=== PATIENT | male | born 1990 | race Caucasian/White ===

== ENCOUNTER 2024-08-11 22:15 | Emergency (ER) | payer MEDICAID ==
[~2024-08-11] VITALS: Ht 170.2 cm; Wt 85.3 kg
[2024-08-11 23:09] VITALS: O2SAT 100
[2024-08-12 00:28] LABS: BASOPHILS % 0.9 % (0.0-2.0); EOSINOPHILS % 2.3 % (0.0-5.0); HEMATOCRIT. 43.2 % (42.0-52.0); LYMPHOCYTES % 42.2 % (20.0-50.0); MEAN CORPUSCULAR HGB CONC 34.7 g/dL (31.0-37.0); MEAN CORPUSCULAR VOLUME 86.6 fL (80.0-94.0); MEAN PLATELET VOLUME 9.6 fl (7.4-10.4); MONOCYTES % 7.1 % (2.0-8.0); NEUTROPHILS % 47.5 % (40.0-76.0); PLATELET 253 x1000/uL (130-400); RED BLOOD CELL COUNT 4.99 mill/uL (4.7-6.1); RED CELL DISTRIBUTION WIDTH 13.4 % (11.6-14.6); WHITE BLOOD COUNT 8.1 x1000/uL (4.5-11.0)
[2024-08-12 00:39] LABS: CHLORIDE 102 mEq/L (98-107); SODIUM 137 mEq/L (136-145)
[2024-08-12 00:40] LABS: CARBON DIOXIDE 30 mEq/L (21-32)
[2024-08-12 00:41] LABS: CALCIUM 10.3 mg/dL (8.7-10.4)
[2024-08-12 00:46] LABS: GLUCOSE 99 mg/dL (70-105); UREA NITROGEN BLOOD 14 mg/dL (9-23)
[2024-08-12] MEDS: KETOROLAC 30MG/ML VIAL IM ONE (04:30)
[2024-08-12] MEDS: MAGNESIUM/ALUMINUM HYDROXIDE/SIMETHICONE 30ML UDC PO ONE (04:30)
[2024-08-12 05:42] LABS: CLARITY URINE CLEAR (CLEAR); COLOR URINE DARK YELLOW (YELLOW); GLUCOSE URINE NEGATIVE (NEGATIVE); KETONES URINE 2+ (NEGATIVE); LEUKOCYTE ESTERASE URINE NEGATIVE (NEGATIVE); NITRITE URINE NEGATIVE (NEGATIVE); OCCULT BLOOD URINE NEGATIVE (NEGATIVE); PH URINE 5.5 (4.5-8.0); PROTEIN URINE TRACE (NEGATIVE); SPECIFIC GRAVITY URINE 1.031 (1.005-1.030)
[2024-08-12] MEDS ORDERED: TOPUD PO (06:17)
[2024-08-12] MEDS ORDERED: FAMO20TA8 MT (06:17)
[2024-08-12] MEDS ORDERED: MAG-55 MT (06:17)
[2024-08-12 06:30] VITALS: BP 134/66; PULSE 67; RESP 18; TEMP 37.05852; O2SAT 100
[2024-08-12 06:46] LABS: WBC URINE 0-2 /hpf (0-2)
[2024-08-12 06:48] LABS: BACTERIA URINE NONE SEEN; RBC URINE NONE SEEN /hpf (0-2); SQUAMOUS EPITHELIAL CELL URINE NONE SEEN /lpf (RARE/1+)
== END 2024-08-12 06:30 | disposition home or self-care (01) ==
LOC: ER 22:15
DX: R10.12 Left upper quadrant pain (principal)
CPT/HCPCS: 99283; 80048; 85025; 36415; 81003; 96372; J1885